=== PATIENT | female | born 1980 | race Caucasian/White ===

== ENCOUNTER 2021-03-31 08:22 | Emergency (ER) | payer SELFPAY ==
[2021-03-31] MEDS ORDERED: TETANUS,DIPH,PERTUSS(ACELL) VACCINE 0.5 ML SYRINGE IM ONE (09:14)
--- NOTE | 2021-03-31 09:16 | Emergency Department Report ---
- General Chief Complaint: Wound/Laceration Stated Complaint: POSS SPIDER BITE Time Seen by Provider: 03/31/21 08:52 Source: patient Mode of arrival: Ambulatory Limitations: Language Barrier - History of Present Illness Initial Comments: The patient was evaluated in the emergency department for symptoms described in the history of present illness. He/she was evaluated in the context of the global COVID-19 pandemic, which necessitated consideration that the patient might be at risk for infection with the virus that causes COVID-19. Institutional protocols and algorithms that pertain to the evaluation of patients at risk for COVID-19 are in a state of rapid change based on information released by regulatory bodies including the CDC and federal and state organizations. These policies and algorithms were followed during the patient's care in the emergency department. Please note that these policies, procedures and recommendations changed on a rapid basis. 40-year-old female presents to the emergency room complaining of right upper thigh wound. She states she thinks something bit her. She reports that she has started some amoxicillin that she bought from the [employer] store yesterday. Patient states that she has noticed some drainage. She states that is gotten dark in the middle. She denies any fever chills no nausea no vomiting no swelling of her leg chest pain no shortness of breath. Onset/Timin -: days(s) Extremity Location: Right: Thigh (Lateral thigh closer to the hip) Place: home Context: other (Concern for insect bite) Treatments Prior to Arrival: bandage - Related Data Home Medications Medication Instructions Recorded Confirmed Last Taken lisinopriL [Zestril] 20 mg PO QDAY 03/12/14 03/20/15 03/20/15 Insulin NPH/Regular [Novolin 70/30] 30 unit SQ BIDDIAB 03/20/15 03/20/15 03/20/15 Metformin HCl [Glucophage] 1,000 mg PO BID 03/20/15 03/20/15 03/20/15 amLODIPine [Norvasc] 10 mg PO DAILY 03/20/15 03/20/15 03/20/15 Previous Rx's Medication Instructions Recorded Last Taken Type Simvastatin (Nf) [Zocor] 20 mg PO QHS #30 tablet 03/13/14 03/20/15 Rx Promethazine [Phenergan TAB] 25 mg PO Q6HR PRN #20 tab 03/21/15 Unknown Rx Promethazine [Phenergan] 25 mg [place] Q6HR PRN #10 supp.rect 03/21/15 Unknown Rx Sulfamethoxazole/Trimethoprim 1 each PO BID #14 tablet 03/21/15 Unknown Rx [Bactrim DS TAB] Ciprofloxacin HCl [Ciprofloxacin 500 mg PO BID #14 tablet 06/06/15 Unknown Rx TAB] Fluconazole (Nf) [Diflucan TAB] 150 mg PO ONCE #1 tablet 06/06/15 Unknown Rx Ondansetron [Zofran ODT TAB] 8 mg PO Q8HR PRN #20 tab.rapdis 06/06/15 Unknown Rx metroNIDAZOLE [Flagyl] 500 mg PO Q12HR #10 tab 06/06/15 Unknown Rx Doxycycline Hyclate [Doxycycline 100 mg PO Q12HR 10 Days #20 tab 03/31/21 Unknown Rx Hyclate TAB] Naproxen 500 mg PO BID PRN #20 tablet 03/31/21 Unknown Rx Allergies Allergy/AdvReac Type Severity Reaction Status Date / Time No Known Allergies Allergy Verified 03/31/21 08:47 ED Review of Systems ROS: Stated complaint: POSS SPIDER BITE Other details as noted in HPI Comment: All other systems reviewed and negative ED Past Medical Hx - Past Medical History Hx Hypertension: Yes Hx Diabetes: Yes Hx Dementia: Yes Additional medical history: HIGH CHOLESTEROL. ANEMIA - Surgical History Additional Surgical History: X 3 - Social History Smoking Status: Never Smoker Substance Use Type: None - Medications Home Medications: Home Medications Medication Instructions Recorded Confirmed Last Taken Type lisinopriL [Zestril] 20 mg PO QDAY 03/12/14 03/20/15 03/20/15 History Simvastatin (Nf) [Zocor] 20 mg PO QHS #30 tablet 03/13/14 03/20/15 03/20/15 Rx Insulin NPH/Regular [Novolin 70/30] 30 unit SQ BIDDIAB 03/20/15 03/20/15 03/20/15 History Metformin HCl [Glucophage] 1,000 mg PO BID 03/20/15 03/20/15 03/20/15 History amLODIPine [Norvasc] 10 mg PO DAILY 03/20/15 03/20/15 03/20/15 History Promethazine [Phenergan TAB] 25 mg PO Q6HR PRN #20 tab 03/21/15 Unknown Rx Promethazine [Phenergan] 25 mg [place] Q6HR PRN #10 supp.rect 03/21/15 Unknown Rx Sulfamethoxazole/Trimethoprim 1 each PO BID #14 tablet 03/21/15 Unknown Rx [Bactrim DS TAB] Ciprofloxacin HCl [Ciprofloxacin 500 mg PO BID #14 tablet 06/06/15 Unknown Rx TAB] Fluconazole (Nf) [Diflucan TAB] 150 mg PO ONCE #1 tablet 06/06/15 Unknown Rx Ondansetron [Zofran ODT TAB] 8 mg PO Q8HR PRN #20 tab.rapdis 06/06/15 Unknown Rx metroNIDAZOLE [Flagyl] 500 mg PO Q12HR #10 tab 06/06/15 Unknown Rx Doxycycline Hyclate [Doxycycline 100 mg PO Q12HR 10 Days #20 tab 03/31/21 Unknown Rx Hyclate TAB] Naproxen 500 mg PO BID PRN #20 tablet 03/31/21 Unknown Rx ED Physical Exam - General Limitations: Language Barrier General appearance: alert, in no apparent distress - Head Head exam: Present: atraumatic, normocephalic - Eye Eye exam: Present: normal appearance - ENT ENT exam: Present: mucous membranes moist - Neck Neck exam: Present: normal inspection, full ROM - Respiratory Respiratory exam: Absent: respiratory distress, accessory muscle use - Cardiovascular Cardiovascular Exam: Present: regular rate - GI/Abdominal GI/Abdominal exam: Present: soft, normal bowel sounds - Expanded Lower Extremity Exam Right Upper Leg exam: Present: full ROM, tenderness, swelling, erythema Knee exam: Present: normal inspection, full ROM Lower Leg exam: Present: normal inspection, full ROM Ankle exam: Present: normal inspection, full ROM Foot/Toe exam: Present: normal inspection, full ROM Gait: Positive: observed and normal - Back Exam Back exam: Present: normal inspection - Neurological Exam Neurological exam: Present: alert, oriented X3, normal gait - Psychiatric Psychiatric exam: Present: normal affect, normal mood - Skin Skin exam: Present: warm, dry, intact, normal color. Absent: rash ED Course Vital Signs 03/31/21 03/31/21 08:28 09:34 Temperature 98.4 F 98.6 F Pulse Rate 83 80 Respiratory 18 16 Rate Blood Pressure 138/89 132/84 O2 Sat by Pulse 100 100 Oximetry ED Medical Decision Making - Medical Decision Making 40-year-old female presents to the emergency room complaining of right upper thigh wound. She states she thinks something bit her. She reports that she has started some amoxicillin that she bought from the [place] store yesterday. Patient states that she has noticed some drainage. She states that is gotten dark in the middle. She denies any fever chills no nausea no vomiting no swelling of her leg chest pain no shortness of breath. Right thigh cellulitis will treat with doxycycline and naproxen patient is referred to her primary care follow-up. Critical care attestation.: If time is entered above; I have spent that time in minutes in the direct care of this critically ill patient, excluding procedure time. ED Disposition Clinical Impression: Cellulitis of right thigh Disposition: HOME / SELF CARE / HOMELESS Is pt being admited?: No Does the pt Need Aspirin: No Condition: Stable Instructions: Cellulitis, Adult, [id number] Additional Instructions: Complete antibiotics as prescribed. Pain medication as needed. Keep wound clean and dry. Follow-up with your primary care provider in the next 3 to 5 days for reevaluation. Antibiticos completos segn lo prescrito. Medicamentos para el dolor segn sea necesario. Mantenga la herida limpia y seca. Tricia un seguimiento con espinal proveedor de atencin primaria en los prximos 3 a 5 acosta para guru reevaluacin. Prescriptions: Doxycycline Hyclate [Doxycycline Hyclate TAB] 100 mg PO Q12HR 10 Days #20 tab Naproxen 500 mg PO BID PRN #20 tablet PRN Reason: Pain , Severe (7-10) Referrals: Your, primary care provider [Other] - 3-5 Days Forms: Work/School Release Form(ED) Time of Disposition: 09:19 Print Language: IRISH
[2021-03-31 09:37] VITALS: BP 132/84
== END 2021-03-31 09:55 | disposition home or self-care (01) ==
LOC: ED 08:22
DX: L03.115 Cellulitis of right lower limb (principal); I10 Essential (primary) hypertension; E11.9 Type 2 diabetes mellitus without complications; E78.00 Pure hypercholesterolemia, unspecified; Z98.890 Other specified postprocedural states; Z79.899 Other long term (current) drug therapy
CPT/HCPCS: 90471; 90715; 99282

== ENCOUNTER 2021-11-04 19:13 | Emergency (ER) | payer OTHER ==
--- NOTE | 2021-11-05 03:27 | Emergency Department Report ---
ED Dizziness HPI - General Chief Complaint: Dizziness Stated Complaint: DIZZY/BP HIGH Source: patient Mode of arrival: Ambulatory Limitations: No Limitations - History of Present Illness Initial Comments: Patient 41-year-old female with history of type 2 diabetes who presents for malaise and intermittent dizziness. Patient has not checked Accu-Chek this week. There is no fevers no chills no nausea no vomiting no back pain. No dysuria or frequency patient denies dysuria frequency or urgency no hematuria. Patient does endorse URI symptoms including cough that is nonproductive. MD Complaint: dizziness - Related Data Home Medications Medication Instructions Recorded Confirmed Last Taken lisinopriL [Zestril] 20 mg PO QDAY 03/12/14 03/20/15 03/20/15 Insulin NPH/Regular [Novolin 70/30] 30 unit SQ BIDDIAB 03/20/15 03/20/15 03/20/15 Metformin HCl [Glucophage] 1,000 mg PO BID 03/20/15 03/20/15 03/20/15 amLODIPine [Norvasc] 10 mg PO DAILY 03/20/15 03/20/15 03/20/15 Previous Rx's Medication Instructions Recorded Last Taken Type Simvastatin (Nf) [Zocor] 20 mg PO QHS #30 tablet 03/13/14 03/20/15 Rx Promethazine [Phenergan TAB] 25 mg PO Q6HR PRN #20 tab 03/21/15 Unknown Rx Promethazine [Phenergan] 25 mg [place] Q6HR PRN #10 supp.rect 03/21/15 Unknown Rx Sulfamethoxazole/Trimethoprim 1 each PO BID #14 tablet 03/21/15 Unknown Rx [Bactrim DS TAB] Ciprofloxacin HCl [Ciprofloxacin 500 mg PO BID #14 tablet 06/06/15 Unknown Rx TAB] Fluconazole (Nf) [Diflucan TAB] 150 mg PO ONCE #1 tablet 06/06/15 Unknown Rx Ondansetron [Zofran ODT TAB] 8 mg PO Q8HR PRN #20 tab.rapdis 06/06/15 Unknown Rx metroNIDAZOLE [Flagyl] 500 mg PO Q12HR #10 tab 06/06/15 Unknown Rx Doxycycline Hyclate [Doxycycline 100 mg PO Q12HR 10 Days #20 tab 03/31/21 Unknown Rx Hyclate TAB] Naproxen 500 mg PO BID PRN #20 tablet 03/31/21 Unknown Rx Allergies Allergy/AdvReac Type Severity Reaction Status Date / Time No Known Allergies Allergy Verified 03/31/21 08:47 ED Review of Systems ROS: Stated complaint: DIZZY/BP HIGH Other details as noted in HPI Constitutional: denies: chills, fever Eyes: denies: eye pain, eye discharge, vision change ENT: denies: ear pain, throat pain Respiratory: cough. denies: shortness of breath, wheezing Cardiovascular: denies: chest pain, palpitations Endocrine: no symptoms reported Gastrointestinal: denies: abdominal pain, nausea, vomiting, diarrhea Genitourinary: denies: urgency, dysuria, frequency, hematuria, discharge Musculoskeletal: denies: back pain, joint swelling, arthralgia Skin: denies: rash, lesions Neurological: denies: headache, weakness, paresthesias Psychiatric: denies: anxiety, depression Hematological/Lymphatic: denies: easy bleeding, easy bruising ED Past Medical Hx - Past Medical History Hx Hypertension: Yes Hx Diabetes: Yes Hx Dementia: Yes Additional medical history: HIGH CHOLESTEROL. ANEMIA - Surgical History Additional Surgical History: X 3 - Social History Smoking Status: Never Smoker Substance Use Type: None - Medications Home Medications: Home Medications Medication Instructions Recorded Confirmed Last Taken Type lisinopriL [Zestril] 20 mg PO QDAY 03/12/14 03/20/15 03/20/15 History Simvastatin (Nf) [Zocor] 20 mg PO QHS #30 tablet 03/13/14 03/20/15 03/20/15 Rx Insulin NPH/Regular [Novolin 70/30] 30 unit SQ BIDDIAB 03/20/15 03/20/15 03/20/15 History Metformin HCl [Glucophage] 1,000 mg PO BID 03/20/15 03/20/15 03/20/15 History amLODIPine [Norvasc] 10 mg PO DAILY 03/20/15 03/20/15 03/20/15 History Promethazine [Phenergan TAB] 25 mg PO Q6HR PRN #20 tab 03/21/15 Unknown Rx Promethazine [Phenergan] 25 mg [place] Q6HR PRN #10 supp.rect 03/21/15 Unknown Rx Sulfamethoxazole/Trimethoprim 1 each PO BID #14 tablet 03/21/15 Unknown Rx [Bactrim DS TAB] Ciprofloxacin HCl [Ciprofloxacin 500 mg PO BID #14 tablet 06/06/15 Unknown Rx TAB] Fluconazole (Nf) [Diflucan TAB] 150 mg PO ONCE #1 tablet 06/06/15 Unknown Rx Ondansetron [Zofran ODT TAB] 8 mg PO Q8HR PRN #20 tab.rapdis 06/06/15 Unknown Rx metroNIDAZOLE [Flagyl] 500 mg PO Q12HR #10 tab 06/06/15 Unknown Rx Doxycycline Hyclate [Doxycycline 100 mg PO Q12HR 10 Days #20 tab 03/31/21 Unknown Rx Hyclate TAB] Naproxen 500 mg PO BID PRN #20 tablet 03/31/21 Unknown Rx ED Physical Exam - General Limitations: No Limitations General appearance: alert, in no apparent distress - Head Head exam: Present: normocephalic, normal inspection - Eye Eye exam: Present: normal appearance, PERRL, EOMI. Absent: conjunctival injec tion, nystagmus Pupils: Present: normal accommodation - ENT ENT exam: Present: normal orophraynx, mucous membranes moist, TM's normal bi laterally, normal external ear exam - Neck Neck exam: Present: normal inspection, full ROM. Absent: tenderness - Respiratory Respiratory exam: Present: normal lung sounds bilaterally. Absent: respiratory distress, wheezes, rales, rhonchi, stridor, chest wall tenderness, prolonged expiratory - Cardiovascular Cardiovascular Exam: Present: regular rate, normal rhythm, normal heart sounds. Absent: systolic murmur, diastolic murmur, rubs, gallop - GI/Abdominal GI/Abdominal exam: Present: soft, normal bowel sounds. Absent: distended, tenderness, guarding, rebound, pulsatile mass, hernia - Rectal Rectal exam: Present: deferred - Extremities Exam Extremities exam: Present: normal inspection, full ROM, normal capillary refill. Absent: tenderness, pedal edema - Back Exam Back exam: Present: normal inspection, full ROM. Absent: CVA tenderness (R), CVA tenderness (L) - Neurological Exam Neurological exam: Present: alert, oriented X3, CN II-XII intact, normal gait, reflexes normal. Absent: motor sensory deficit - Expanded Neurological Exam Expanded Patient oriented to: Present: person, place, time Speech: Present: fluid speech Motor strength exam: RUE: 5, LUE: 5, RLE: 5, LLE: 5 Best Eye Response (Jeff): (4) open spontaneously Best Motor Response (Jeff): (6) obeys commands Best Verbal Response (Jeff): (5) oriented Jeff Total: 15 - Psychiatric Psychiatric exam: Present: normal affect, normal mood - Skin Skin exam: Present: warm, dry, intact, normal color. Absent: rash ED Course Vital Signs 11/04/21 20:44 Temperature 98.4 F Pulse Rate 89 Respiratory 18 Rate Blood Pressure 127/78 O2 Sat by Pulse 99 Oximetry ED Medical Decision Making - Lab Data Result diagrams: 11/05/21 03:34 11/05/21 03:34 Labs 11/05/21 11/05/21 11/05/21 03:34 03:34 Unknown WBC 7.3 RBC 4.32 Hgb 12.0 Hct 36.5 MCV 85 MCH 28 MCHC 33 RDW 16.4 H Plt Count 230 Lymph % (Auto) 27.4 Giles % (Auto) 12.9 H Eos % (Auto) 1.7 Baso % (Auto) 0.4 Lymph # (Auto) 2.0 Giles # (Auto) 0.9 H Eos # (Auto) 0.1 Baso # (Auto) 0.0 Seg Neutrophils % 57.6 Seg Neutrophils # 4.2 Sodium 137 Potassium 4.4 Chloride 101.0 Carbon Dioxide 26 Anion Gap 14 BUN 14 Creatinine 0.6 Estimated GFR > 60 BUN/Creatinine Ratio 23 Glucose 145 H Calcium 9.0 Total Bilirubin < 0.20 AST 16 ALT 10 Alkaline Phosphatase 37 Troponin T < 0.010 Total Protein 7.2 Albumin 4.1 Albumin/Globulin Ratio 1.3 Urine Color Yellow Urine Turbidity Clear Urine pH 5.0 Ur Specific [place] 1.023 Urine Protein <15 mg/dl Urine Glucose (UA) >=500 Urine Ketones Neg Urine Blood Neg Urine Nitrite Neg Urine Bilirubin Neg Urine Urobilinogen < 2.0 Ur Leukocyte Esterase Neg Urine WBC (Auto) 1.0 Urine RBC (Auto) 1.0 U Epithel Cells (Auto) 3.0 Urine Mucus 2+ - EKG Data EKG shows normal: sinus rhythm, axis, intervals, QRS complexes, ST-T waves Rate: normal - EKG Data When compared to previous EKG there are: previous EKG unavailable Interpretation: normal EKG (Normal sinus rhythm, heart rate [address] elevated DC interpreted by ED attending.) - Radiology Data Radiology results: report reviewed, image reviewed XR chest routine 2V INDICATION / CLINICAL INFORMATION: cough. COMPARISON: None available. FINDINGS: SUPPORT DEVICES: None. HEART /PULMONARY VASCULATURE: No significant abnormality. LUNGS / PLEURA: No significant pulmonary or pleural abnormality. No pneumothorax. ADDITIONAL FINDINGS: No significant additional findings. IMPRESSION: 1. No acute findings. Signer Name: Mahsa Bosch MD Signed: 11/05/2021 4:53 AM Workstation Name: [id number] Transcribed By: SHANEKA Dictated By: MAHSA BOSCH MD Electronically Authenticated By: MAHSA BOSCH MD Signed Date/Time: 11/05/21452 DD/ 2 TD/TT: - Medical Decision Making Symptoms improved with medications given in ED. Plan follow-up primary care doctor in 2 to 3 days. Take medications as prescribed. Including diabetes medications. Hydrate as directed. Patient verbalized agreement and understanding with discharge plan. Patient will be DC'd home in stable condition at this time. Critical care attestation.: If time is entered above; I have spent that time in minutes in the direct care of this critically ill patient, excluding procedure time. ED Disposition Clinical Impression: Dizziness Disposition: 01 HOME / SELF CARE / HOMELESS Is pt being admited?: No Does the pt Need Aspirin: No Condition: Stable Instructions: Dizziness, [id number], Type 2 Diabetes Mellitus, Diagnosis, Adult, Amlodipine tablets, Lisinopril tablets, Metformin tablets, Regular Insulin; Isophane Insulin (NPH) injection Additional Instructions: Take medications as prescribed by your doctor please. Follow-up with your doctor in 2 to 3 days. Return to emergency department should system worsen. Hydrate as directed. Referrals: COREY DIAZ MD [Primary Care Provider] - 3-5 Days RIVER BRADFORD MD [Staff Physician] - 3-5 Days Forms: Work/School Release Form(ED) Time of Disposition: 05:58
[2021-11-05 03:54] LABS: Basophils % (Auto) 0.4 % (0.0-1.8); Eosinophils # (Auto) 0.1 K/mm3 (0.0-0.4); Eosinophils % (Auto) 1.7 % (0.0-4.3); Hematocrit 36.5 % (30.3-42.9); Lymphocytes % (Auto) 27.4 % (13.4-35.0); Mean Corpuscular HGB Conc 33 % (30-34); Mean Corpuscular Volume 85 fl (79-97); Monocytes # (Auto) 0.9 K/mm3 (0.0-0.8); Monocytes % (Auto) 12.9 % (0.0-7.3); Platelet Count 230 K/mm3 (140-440); Red Blood Count 4.32 M/mm3 (3.65-5.03); Red Cell Distribution Width 16.4 % (13.2-15.2)
--- NOTE | 2021-11-05 04:08 | XRay Report ---
XR chest routine 2V INDICATION / CLINICAL INFORMATION: dizziness. COMPARISON: None available. FINDINGS: SUPPORT DEVICES: None. HEART /PULMONARY VASCULATURE: No significant abnormality. LUNGS / PLEURA: No significant pulmonary or pleural abnormality. No pneumothorax. ADDITIONAL FINDINGS: No significant additional findings. IMPRESSION: 1. No acute findings. Signer Name: Bud Mccracken MD Signed: 11/05/2021 4:03 AM Workstation Name: [id number]
[2021-11-05 04:30] LABS: Alanine Aminotransferase 10 units/L (7-56); Albumin 4.1 g/dL (3.9-5); Blood Urea Nitrogen 14 mg/dL (7-17); Hemolysis Index 25
[2021-11-05 04:41] LABS: BUN/Creatinine Ratio 23
[2021-11-05] MEDS ORDERED: SODIUM CHLORIDE 0.9% 1000 ML 1,000 ML IV ONE (05:07)
[2021-11-05 05:12] LABS: Bilirubin,Urine NEG (Negative); Blood,Urine NEG (Negative); Color,Urine Yellow (Yellow); Mucus,Urine 2+ /HPF; Protein,Urine <15 mg/dL mg/dL (Negative); Urobilinogen,Urine < 2.0 mg/dL (<2.0)
[2021-11-05 06:30] VITALS: BP 132/80
--- NOTE | 2021-11-05 11:44 | Electrocardiograph Report ---
[facility] Test Date: 2021-11-05 Test Time: 04:45:02 Pat Name: ROBY MRECER Department: Room: Gender: F Medical Sales Consultant: MANDY : 1980 Requested By: CECIL PETER Order Number: [id number] Reading MD: Hany Abdullahi Measurements Intervals [place] Rate: 72 P: 45 TN: 162 QRS: 53 QRSD: 79 T: 49 QT: 386 QTc: 422 Interpretive Statements Sinus rhythm No previous ECG available for comparison Electronically Signed On 11-05-2021 11:43:54 EDT by Hany Abdullahi
== END 2021-11-05 06:31 | disposition home or self-care (01) ==
LOC: ED 19:13
DX: R42 Dizziness and giddiness (principal); I10 Essential (primary) hypertension; E11.9 Type 2 diabetes mellitus without complications; F03.90 Unspecified dementia, unspecified severity, without behavioral disturbance, psychotic disturbance, mood disturbance, and anxiety; Z79.899 Other long term (current) drug therapy
CPT/HCPCS: 36415; 71046; 80053; 81001; 84484; 85025; 93005; 96360; 99284; J7030